=== PATIENT | female | born 1960 | race Caucasian/White ===

== ENCOUNTER → 2020-10-23 16:49 | Outpatient (CLI) | payer BC, SELFPAY ==
--- NOTE | ~2020-10-23 | XR_ITS ---
EXAMINATION: XR heel RT min 2V INDICATION: Right heel pain TECHNIQUE: Two views of the right calcaneus are obtained. COMPARISON: None available FINDINGS: There is no fracture, dislocation, or subluxation. The bones, soft tissues, and joint space s are normal. A plantar calcaneal enthesophyte is noted. There is mild osteoarthritis of the midfoot. IMPRESSION: 1. No acute osseous abnormality. Reviewed, dictated and finalized at location A. [employer]ING CONSTRUCTION ESTIMATOR
== END ==
PROVIDERS: Visit Provider Physician Assistant
DX: M79.671 Pain in right foot (principal)
CPT/HCPCS: 73650

== ENCOUNTER 2020-10-29 07:02 | Outpatient (CLI) | payer BC, SELFPAY ==
[2020-10-29 07:15] LABS: Basophils Absolute Auto 0.03 K/mm3 (0.00-0.10); Basophils Percent Auto 0.4 % (0.0-1.0); Eosinophils Absolute Auto 0.31 K/mm3 (0.02-0.50); Eosinophils Percent Auto 4.2 % (1.0-6.0); Hematocrit 40.3 % (35.0-49.0); Hemoglobin 13.3 g/dL (12.0-15.0); Immature Granulocyte Absolute 0.04 K/mm3 (0.00-0.00); Immature Granulocyte Percent A 0.5 % (0.0-0.0); Lymphocytes Absolute Auto 1.34 K/mm3 (1.10-4.50); Lymphocytes Percent Auto 18.2 % (18.0-42.0); Mean Corpuscular Hemoglobin 30.9 pg (27.0-31.0); Mean Corpuscular Volume 93.5 fL (78.0-102.0); Mean Platelet Volume 11.4 fl (9.2-11.8); Monocytes Absolute Auto 0.52 K/mm3 (0.10-0.90); Neutrophils Absolute Auto 5.1 K/mm3 (1.7-7.2); Neutrophils Percent Auto 69.7 % (50.0-70.0); Platelet Count Result 185 K/mm3 (150-420); Red Blood Count 4.31 M/mm3 (4.20-5.40); Red Cell Distribution Width 12.4 % (11.6-14.4); White Blood Count 7.4 K/mm3 (4.8-10.8)
[2020-10-29 07:28] LABS: Hemoglobin A1C 6.3 % (<5.7)
[2020-10-29 08:45] LABS: Alanine Aminotransferase 27 U/L (14-59); Albumin Level 3.8 g/dL (3.4-5.0); Alkaline Phosphatase 53 U/L (46-116); Anion Gap 8 mmol/L (8-16); Aspartate Amino Transferase 16 U/L (15-37); Bilirubin,Total 0.7 mg/dL (0.00-1.00); Blood Urea Nitrogen 31 mg/dL (7-18); Calcium 8.9 mg/dL (8.5-10.1); Carbon Dioxide 30 mmol/L (21-32); Chloride 103 mmol/L (98-108); Cholesterol 185 mg/dL (0-200); Estimated Glomerular Filt Rate 55; Glucose 85 mg/dL (70-99); HDL Direct 44 mg/dL (40-60); LDL Cholesterol Calculated 119 mg/dL (<130); Osmolality Calculated 297 mOsm/kg (285-295); Potassium 4.5 mmol/L (3.5-5.1); Sodium 141 mmol/L (136-145); Thyroid Stimulating Hormone 2.26 uIU/mL (0.36-3.74); Total Protein 6.7 g/dL (6.4-8.2); Triglycerides 112 mg/dL (0-150)
== END 2020-10-29 07:03 | disposition home or self-care (01) ==
PROVIDERS: PCP Physician Assistant; Visit Provider Physician Assistant
DX: E78.5 Hyperlipidemia, unspecified (principal); E11.9 Type 2 diabetes mellitus without complications; I10 Essential (primary) hypertension; M79.671 Pain in right foot; Z13.31 Encounter for screening for depression
CPT/HCPCS: 36415; 80053; 80061; 83036; 84443; 85025

== ENCOUNTER 2021-02-14 14:46 | Outpatient (CLI) | payer BC, SELFPAY ==
[2021-02-14 15:51] LABS: Hemoglobin A1C 7.2 % (<5.7)
[2021-02-14 16:06] LABS: Alanine Aminotransferase 25 U/L (14-59); Albumin Level 3.8 g/dL (3.4-5.0); Alkaline Phosphatase 79 U/L (46-116); Anion Gap 13 mmol/L (8-16); Aspartate Amino Transferase 14 U/L (15-37); Bilirubin,Total 0.5 mg/dL (0.00-1.00); Blood Urea Nitrogen 28 mg/dL (7-18); Calcium 8.9 mg/dL (8.5-10.1); Carbon Dioxide 26 mmol/L (21-32); Chloride 101 mmol/L (98-108); Estimated Glomerular Filt Rate 47; Glucose 196 mg/dL (70-99); Osmolality Calculated 300 mOsm/kg (285-295); Potassium 4.4 mmol/L (3.5-5.1); Sodium 140 mmol/L (136-145); Total Protein 6.9 g/dL (6.4-8.2)
== END 2021-02-14 14:47 | disposition home or self-care (01) ==
LOC: CHSLAB 14:48
PROVIDERS: PCP Physician Assistant; Visit Provider Physician Assistant
DX: E11.9 Type 2 diabetes mellitus without complications (principal); M25.471 Effusion, right ankle; M25.50 Pain in unspecified joint
CPT/HCPCS: 36415; 80053; 83036

== ENCOUNTER 2021-12-30 12:45 | Emergency (ER) | payer BC, SELFPAY ==
--- NOTE | ~2021-12-30 | XR_ITS ---
EXAMINATION: XR chest 2V DATE: 12/30/2021 13:16 INDICATION: Dyspnea. Lightheadedness. TECHNIQUE: PA and lateral views of the chest were obtained. COMPARISON: None FINDINGS: Calcified right lower lobe nodule consistent with old granulomatous disease. Mild eventration along t he right hemidiaphragm. Minimal streaky bibasilar atelectasis. No other airspace opacities, pulmonary edema, pleural effusion or pneumothorax. Cardiomediastinal silhouette is normal. Mild thoracic and m oderate lumbar spondylosis. IMPRESSION: 1. Minimal bibasilar atelectasis. Reviewed, dictated and finalized at location A.
--- NOTE | 2021-12-30 12:49 | ECG_ITS ---
Measurements Intervals [place] Rate: 74 P: 5 SC: 141 QRS: 14 QRSD: 105 T: 4 QT: 379 QTc: 423 Interpretive Statements SINUS RHYTHM CONSIDER INFERIOR INFARCT, AGE INDETERMINATE ABNORMAL ECG Electronically Signed On 12-30-2021 13:00:24 CDT by Dilan Renee D.O.
[2021-12-30 12:57] VITALS: BP 194/74; PULSE 73; RESP 17; TEMP 36.5; O2SAT 97
--- NOTE | 2021-12-30 14:26 | PC.NURSE ---
pt reports chest pressure earlier, brain fog, and nausea.
[2021-12-30 14:28] VITALS: BP 138/90; PULSE 68; RESP 18; O2SAT 97
[2021-12-30 14:52] LABS: Basophils Absolute Auto 0.1 K/mm3 (0.0-0.1); Basophils Percent Auto 0.6 % (0.2-1.2); Eosinophils Absolute Auto 0.4 K/mm3 (0-0.3); Eosinophils Percent Auto 4.2 % (0-4.4); Hematocrit 40.5 % (37.0-47.0); Hemoglobin 13.2 g/dL (12.0-15.0); Immature Granulocyte Absolute 0.03 K/mm3 (0.00-0.031); Immature Granulocyte Percent A 0.3 % (0-0.5); Lymphocytes Absolute Auto 1.81 K/mm3 (0.9-3.2); Lymphocytes Percent Auto 20.4 % (18.3-44.2); Mean Corpuscular HGB Conc 32.6 g/dl (32-36); Mean Corpuscular Volume 95.1 fl (80-100); Mean Platelet Volume 11.5 fl (7.4-10.4); Monocytes Absolute Auto 0.5 K/mm3 (0.1-0.6); Neutrophils Absolute Auto 6.1 K/mm3 (1.3-6.7); Neutrophils Percent Auto 68.5 % (45.5-73.1); Platelet Count Result 201 k/mm3 (150-375); Red Blood Count 4.26 M/mm3 (4.2-5.4); Red Cell Distribution Width 12.9 % (11.5-14.5); White Blood Count 8.9 K/mm3 (4.5-10.0)
--- NOTE | 2021-12-30 15:00 | ED.SOB ---
HPI - SOB/Dyspnea General Chief Complaint: Shortness of Breath/Dyspnea Stated Complaint: lightheaded, SOB Time Seen by Provider: 12/30/21 14:59 Source: patient Mode of arrival: ambulatory Limitations: no limitations History of Present Illness HPI Narrative: Patient is a 61-year-old female with a history of hypertension, diabetes presenting to the emergency department for evaluation of general malaise, nausea that occurred this morning around 5 in the morning. Patient stated that she awakened from sleep with concern that perhaps her blood glucose levels were low. Patient states she felt generally unwell, but denied chest pain, abdominal pain, diaphoresis. She reported mild nausea. Patient states she checked her glucose levels and they were 138. Patient states that she did not have any dizziness but felt slightly lightheaded at that time. Patient reported some chest heaviness without shortness of breath. She denies cough. No ripping or tearing sensation to the back or flanks. No leg swelling or calf pain. No recent car or air travel. No known history of COVID infection. Patient states she called to a nurse insurance line and was encouraged to come into the emergency department. Patient reports resolution of symptoms at this time. Related Data Allergies Allergy/AdvReac Type Severity Reaction Status Date / Time insulin detemir Allergy Anaphylaxis Verified 12/30/21 13:00 [From Levemir U-100 Insulin] lisinopril Allergy Anaphylaxis Verified 12/30/21 13:00 Review of Systems Review of Systems: CONSTITUTIONAL: Denies fever, chills, or sweats. EYES: Denies visual changes, redness, or discharge. ENT: Denies rhinorrhea, congestion, sore throat, or otalgia. CARDIOVASCULAR: Denies chest pain, palpitations, or edema. RESPIRATORY: Denies cough or dyspnea. GASTROINTESTINAL: Denies abdominal pain, nausea, vomiting, or diarrhea. GENITOURINARY: Denies dysuria or hematuria. SKIN: Denies rash or itching. MUSCULOSKELETAL: Denies back pain, joint pain, or myalgia. NEUROLOGIC: Denies headache, numbness, or weakness. [facility] Social History Social History (Updated 12/30/21 @ 15:56 by Sita Isidro MD) Substance use: never Gender identity (if verbalized by the patient): Female Exam Narrative: GENERAL: Awake, alert, conversant HEAD: Normocephalic, atraumatic. EYES: PERRLA and EOMI. ENT: Nares clear, no rhinorrhea or epistaxis. Mucous membranes moist. NECK: Supple. CHEST: No respiratory distress, breathing even and non labored HEART: Regular rate, sinus rhythm ABDOMEN:Non distended, non tender EXTREMITIES: Normal range of motion. No edema. SKIN: Warm, dry, no rash. NEURO:No focal deficits. Alert and oriented x3. Finger to nose intact bilaterally. EOMs intact without nystagmus. No facial droop/asymmetry noted bilaterally. Grimace intact. Intact sensation in face. Hearing intact bilaterally. Shoulder shrug intact. Strength 5/5 bilateral upper extremities. Strength 5/5 bilateral lower extremities. Reflexes 2+ patellar. Heel to valentine intact bilaterally. Ambulatory with a narrow-based steady gait without ataxia. Course Vital Signs Vital signs: Vital Signs Temperature 36.5 C 12/30/21 12:57 Pulse Rate 73 12/30/21 12:57 Respiratory Rate 17 12/30/21 12:57 Blood Pressure 194/74 H 12/30/21 12:57 Pulse Oximetry 97 12/30/21 12:57 Temperature 36.5 C 12/30/21 12:57 Pulse Rate 77 12/30/21 16:48 Respiratory Rate 16 12/30/21 16:48 Blood Pressure 138/87 12/30/21 16:48 Pulse Oximetry 98 12/30/21 16:48 MDM - SOB/Dyspnea MDM Narrative Medical decision making narrative: Patient presented to emergency department for evaluation of episode of lightheadedness that has resolved at the time of assessment. She reported some chest tightness that occurred with this earlier episode that is also since resolved. She denies any current chest pain in the ER. No cardiac pain, shortness of breath. She is Wells criteria low ri
[2021-12-30 15:13] LABS: INR 0.9; Prothrombin Time 11.6 Seconds (11.1-14.7)
[2021-12-30 15:14] LABS: Partial Thromboplastin Time 26.8 SECONDS (22.3-36.8)
[2021-12-30 15:15] LABS: Alanine Aminotransferase 24 U/L (6-35); Albumin Level 4.6 g/dL (3.5-5.1); Alkaline Phosphatase 90 U/L (38-126); Anion Gap 9 mmol/L (8-16); Aspartate Amino Transferase 28 U/L (14-36); Bilirubin,Total 0.6 mg/dL (0.2-1.3); Blood Urea Nitrogen 35 mg/dL (7-17); Calcium 9.1 mg/dL (8.4-10.2); Carbon Dioxide 24 mmol/L (22-30); Chloride 104 mmol/L (98-107); Estimated CRCL calculation 90 ml/min; Estimated Glomerular Filt Rate > 60; Glucose 136 mg/dL (65-110); Lipase 39 U/L (23-300); Potassium 4.2 mmol/L (3.4-5.0); Sodium 137 mmol/L (137-145)
[2021-12-30 15:28] LABS: Troponin I < 0.012 ng/mL (0.000-0.034)
[2021-12-30 15:35] VITALS: BP 142/78; PULSE 68; RESP 20; O2SAT 98
[2021-12-30 16:48] VITALS: BP 138/87; PULSE 77; RESP 16; O2SAT 98
[2021-12-30 17:20] LABS: Glucose Point of Care 82 mg/dl (65-105)
--- NOTE | 2021-12-30 17:21 | PC.NURSE ---
pt states she feels her blood sugar is low. FSBS is 82, ERP aware. Pt was given meal tray.
[2021-12-30 17:38] LABS: Troponin I < 0.012 ng/mL (0.000-0.034)
[2021-12-30 18:04] VITALS: BP 142/98; PULSE 77; RESP 16; O2SAT 98
== END 2021-12-30 18:04 | disposition home or self-care (01) ==
PROVIDERS: Emergency Medicine; Emergency Provider Emergency Medicine; PCP Physician Assistant
DX: R42 Dizziness and giddiness (principal); I10 Essential (primary) hypertension; E11.9 Type 2 diabetes mellitus without complications
CPT/HCPCS: 36415; 71046; 80053; 82948; 83690; 84484; 85025; 85610; 85730; 93005; 99284

== ENCOUNTER 2022-01-11 17:16 | Emergency (ER) | payer BC, SELFPAY ==
--- NOTE | ~2022-01-11 | XR_ITS ---
EXAM: XR foot LT min 3V DATE: 01/11/2022 17:48 HISTORY: Blunt trauma x 3 days ago. pain across top of foot . COMPARISON: None available. FINDINGS: Normal mineralization. No fracture or dislocation. No lytic or blastic lesion. Joint space s are maintained. Achilles and plantar enthesopathy. No erosion or periosteal change. Soft tissues wi thin normal limits. IMPRESSION: No acute osseous finding in the left foot. Reviewed, dictated and finalized at location K.
--- NOTE | 2022-01-11 17:31 | ED.LOWEXIN ---
HPI - Extremity Injury (Lower) General Chief Complaint: Extremity Injury, Lower Stated Complaint: foot pain Time Seen by Provider: 01/11/22 17:31 Source: patient and RN notes reviewed Mode of arrival: ambulatory Limitations: no limitations History of Present Illness MD complaint: foot injury Onset (ago): day(s) (3) Injury: Left: foot Type of Injury: blunt Place: home Severity: moderate Exacerbating factors: weight bearing and palpation Context: direct blow ( 4 x 4 fell on her foot 3 days ago) Related Data Home Medications Medication Instructions Recorded Confirmed gabapentin 300 mg capsule 600 mg PO BID 01/11/22 01/11/22 gabapentin 300 mg capsule 300 mg PO BID 01/11/22 01/11/22 (Neurontin) hydrochlorothiazide 25 mg tablet 25 mg PO DAILY 01/11/22 01/11/22 losartan 50 mg tablet 50 mg PO DAILY 01/11/22 01/11/22 Allergies Allergy/AdvReac Type Severity Reaction Status Date / Time insulin detemir Allergy Anaphylaxis Verified 12/30/21 13:00 [From Levemir U-100 Insulin] lisinopril Allergy Anaphylaxis Verified 12/30/21 13:00 tramadol [From Ultram] Allergy Hives Verified 01/11/22 17:45 Review of Systems Review of Systems: All systems reviewed & are unremarkable except as noted in HPI and below PMFSH Past Medical History Medical History (Updated 01/11/22 @ 18:04 by Nino Kwon MD) Diabetes Hypertension Morbid obesity Social History Social History (Updated 12/30/21 @ 15:56 by Sita Isidro MD) Substance use: never Gender identity (if verbalized by the patient): Female Exam Const: General: healthy appearing, no acute distress and alert Nutritional Appearance: well nourished and obese Orientation/consciousness: patient oriented x3 Limitations: no limitations HENMT: Head: normal to inspection Ears: external ears normal Eyes: Conjunctivae: conjunctivae normal Pupils: Equal, round and reactive pupils present EOM: EOMs intact bilaterally Neck: Neck: normal visual inspection Resp: Effort & Inspection: normal respiratory effort Auscultation: clear to auscultation bilaterally Cardio: Rate: regular rate Rhythm: regular rhythm GI: GI Palp: Yes Soft to palpation and No Tenderness to palpation present (GI) Auscultation: normal bowel sounds Back/Spine/Pelvis: Cervical Spine: cervical ROM normal Thoracic/Lumbar Spine: thoraco-lumbar ROM normal Skin: General skin exam: normal color Rashes: no rashes Neuro: General: patient oriented x3, moves all extremities, no focal motor deficits and CN's II-XI intact bilaterally Speech: normal speech Gait exam (Neuro): Normal gait present Extrem: General: normal exam except as noted Left lower extremity: foot Details: tenderness Location: of the dorsal foot Location: distally, toes with normal ROM, ecchymosis dorsal distal single and vascular exam Details: normal capillary refill; no crepitus Psych: Mental Status: mental status grossly normal Affect: normal affect Attitude: cooperative Course Vital Signs Vital signs: Vital Signs Temperature 36.4 C L 01/11/22 17:41 Pulse Rate 60 01/11/22 17:41 Respiratory Rate 16 01/11/22 17:41 Blood Pressure 185/72 H 01/11/22 17:41 Pulse Oximetry 98 01/11/22 17:41 Oxygen Delivery Room Air 01/11/22 17:41 Temperature 36.4 C L 01/11/22 18:09 Pulse Rate 60 01/11/22 18:09 Respiratory Rate 16 01/11/22 18:09 Blood Pressure 185/72 H 01/11/22 18:09 Pulse Oximetry 98 01/11/22 18:09 Oxygen Delivery Room Air 01/11/22 18:09 Discharge Plan Discharge Clinical Impression: Contusion of foot, left Patient Disposition: Home, Self-Care Condition: Stable Instructions: Foot Contusion (ED) Additional Instructions: use Tylenol and or Motrin as needed for pain. Prescriptions: No Action losartan 50 mg tablet 50 mg PO DAILY gabapentin 300 mg capsule 600 mg PO BID gabapentin [Neurontin] 300 mg capsule 300 mg PO BID hydrochlorothiazide 25
[2022-01-11 17:41] VITALS: BP 185/72; PULSE 60; RESP 16; TEMP 36.4; O2SAT 98
[2022-01-11 18:09] VITALS: BP 185/72; PULSE 60; RESP 16; TEMP 36.4; O2SAT 98
== END 2022-01-11 18:11 | disposition home or self-care (01) ==
PROVIDERS: Emergency Provider Emergency Medicine; PCP Physician Assistant
DX: S90.32XA Contusion of left foot, initial encounter (principal); E11.9 Type 2 diabetes mellitus without complications; I10 Essential (primary) hypertension; Z79.4 Long term (current) use of insulin; W19.XXXA Unspecified fall, initial encounter
CPT/HCPCS: 73630; 99283

== ENCOUNTER → 2022-07-01 09:00 | Outpatient (CLI) | payer BC, SELFPAY ==
--- NOTE | ~2022-07-01 | MR_ITS ---
EXAMINATION: MR lumbar spine wo con DATE: 07/01/2022 09:38 INDICATION: Bilateral lumbar radiculopathy. Low back pain. TECHNIQUE: Magnetic resonance imaging (MRI) of the lumbar spine was performed without intravenous con trast. Sequences included sagittal T2-weighted FSE, sagittal T2-weighted FS FSE, sagittal T1-weighted FSE, and axial T2-weighted FSE. COMPARISON: None FINDINGS: There is 5 degrees levocurvature of lumbar spine. There is 3 mm retrolisthesis of L1 on L2, L2 on L3, and L3 on L4 and 3 mm anterolisthesis of L4 on L5. There is mild chronic anterior wedging of T11 vertebral body. There is moderately decreased disc height at L1-L2, severely decreased disc he ight at L2-L3 and L3-L4, moderately decreased disc height at L4-L5, and severely decreased disc heigh t at L5-S1 with endplate remodeling. The distal spinal cord signal intensity is normal. The conus med ullaris is at L1. The following disc levels are specifically discussed: L1-L2: The disc is bulging and has an annular fissure. There is mild bilateral facet joint osteoarthr itis. There is mild left neural foraminal stenosis. There is mild central canal stenosis. L2-L3: The disc is bulging. There is moderate bilateral facet joint osteoarthritis. There is mild sheryl ateral neural foraminal stenosis. There is mild central canal stenosis. L3-L4: The disc is bulging and has an annular fissure. There is moderate bilateral facet joint osteoa rthritis. There is moderate right and mild left neural foraminal stenosis. There is mild central ivone l stenosis. L4-L5: The disc is bulging with superimposed left central extrusion with 10 mm superior extension. Th ere is severe bilateral facet joint osteoarthritis. There is a 5 mm synovial cyst from left facet fausto nt in the epidural space. There is mild right and moderate left neural foraminal stenosis. There is m ild central canal stenosis. There is severe stenosis of left lateral recess. L5-S1: The disc bulging and has an annular fissure. There is moderate bilateral facet joint osteoarth ritis. There is mild right and moderate left neural foraminal stenosis. There is mild central canal s tenosis. IMPRESSION: 1. Severe lumbar spondylosis. Reviewed, dictated and finalized at location A. [employer]ING SUPERVISOR
== END ==
PROVIDERS: PCP Physician Assistant; Visit Provider Physician Assistant
DX: M47.26 Other spondylosis with radiculopathy, lumbar region (principal)
CPT/HCPCS: 72148